=== PATIENT | female | born 1970 | race Caucasian/White ===

== ENCOUNTER 2023-01-06 10:03 | Day surgery (SDC) | payer OTHER ==
[~2023-01-06] VITALS: Ht 167.6 cm; Wt 60.2 kg
[~2023-01-06 10:03] MED LIST: ALLE60TA69 PO; DICY20TA3 PO; FLON1SPR; NS 1,000 ML IV ONE; ZYRTTAB8 PO
[2023-01-06] MEDS ORDERED: LIDOCAINE 2% 100MG/5ML SDV (FOR ANES.) As Ordered ONE (11:07)
[2023-01-06] MEDS ORDERED: propofoL 200 MG/20 ML VIAL As Ordered ONE (11:08)
[2023-01-06] MEDS ORDERED: ONDANSETRON 4MG 2ML VIAL As Ordered ONE (11:08)
[2023-01-06 11:39] VITALS: TEMP 97.8
[2023-01-06 11:58] VITALS: BP 115/69; O2SAT 99
== END 2023-01-06 12:04 | disposition home or self-care (01) ==
LOC: M OPP 10:03
PROVIDERS: ATTEND Internal Medicine Gastroenterology
DX: Z12.11 Encounter for screening for malignant neoplasm of colon (principal); D12.3 Benign neoplasm of transverse colon; Z79.52 Long term (current) use of systemic steroids; Z79.899 Other long term (current) drug therapy; Z88.5 Allergy status to narcotic agent
CPT/HCPCS: 45385; 88305; J2405